=== PATIENT | female | born 1955 | race Caucasian/White ===

== ENCOUNTER 2017-09-26 17:01 | Emergency (ER) | payer OTHER ==
[2017-09-26] MEDS: DIPHENHYDRAMINE 25 MG CAP PO (19:49)
== END 2017-09-26 20:48 | disposition home or self-care (01) ==
LOC: FTE 17:01
DX: L03.114 Cellulitis of left upper limb (principal); M25.562 Pain in left knee; I10 Essential (primary) hypertension; E11.9 Type 2 diabetes mellitus without complications
CPT/HCPCS: 99283; Z7502